=== PATIENT | male | born 1955 | race Caucasian/White ===

== ENCOUNTER 2017-02-06 16:18 | Emergency (ER) | payer MEDICAID ==
[~2017-02-06] VITALS: Ht 180.3 cm; Wt 90.0 kg
[~2017-02-06 16:18] MED LIST: AMOX1TAB64 PO; ASPI325T4 PO; ATEN50TA41 PO; ATOR40TA78 PO; ENAL10TA PO; FENO160T PO; HYDR2TAB29 PO; TRAM100T2 PO
[2017-02-06 16:21] VITALS: BP 191/76
[2017-02-06] MEDS ORDERED: HYDROmorphone 1 MG/ML, 1ML ONE (16:59)
[2017-02-06] MEDS ORDERED: HYDROmorphone 1 MG/ML, 1ML IM STA (16:59)
== END 2017-02-06 17:26 | disposition home or self-care (01) ==
LOC: ED 17:20
DX: S82.65XA Nondisplaced fracture of lateral malleolus of left fibula, initial encounter for closed fracture (principal); E78.00 Pure hypercholesterolemia, unspecified; I10 Essential (primary) hypertension; K21.9 Gastro-esophageal reflux disease without esophagitis; J44.9 Chronic obstructive pulmonary disease, unspecified; Z88.0 Allergy status to penicillin; Z88.5 Allergy status to narcotic agent; W23.0XXA Caught, crushed, jammed, or pinched between moving objects, initial encounter; Y93.55 Activity, bike riding; Y92.488 Other paved roadways as the place of occurrence of the external cause; Y99.8 Other external cause status
CPT/HCPCS: 29515; 73610; 73630; 96372; 99284; J1170

== ENCOUNTER 2018-03-12 15:10 | Emergency (ER) | payer MEDICAID ==
[~2018-03-12] VITALS: Ht 180.3 cm; Wt 91.0 kg
[~2018-03-12 15:10] MED LIST changes: +ASPI325T17 PO; -ASPI325T4 PO; -TRAM100T2 PO; +TRAM100T33 PO
[2018-03-12 15:12] VITALS: BP 155/74
[2018-03-12] MEDS ORDERED: LIDOCAINE-MPF 1%, 5ML INFIL ONE ×2 (15:30→16:00)
[2018-03-12] MEDS ORDERED: LIDOCAINE-MPF 2%, 2ML ONE (15:34)
[2018-03-12] MEDS ORDERED: DIPH,PERTUSS(ACELL),TET VAC/PF 0.5 ML IM-VACC ONE ×2 (15:51→16:00)
[2018-03-12] MEDS ORDERED: BACITRACIN ZINC OINT 500U/GM, 0.9 GM ONE (15:57)
== END 2018-03-12 16:14 | disposition home or self-care (01) ==
LOC: ED 16:00
DX: S61.412A Laceration without foreign body of left hand, initial encounter (principal); E78.00 Pure hypercholesterolemia, unspecified; I10 Essential (primary) hypertension; K21.9 Gastro-esophageal reflux disease without esophagitis; J44.9 Chronic obstructive pulmonary disease, unspecified; I25.2 Old myocardial infarction; F17.200 Nicotine dependence, unspecified, uncomplicated; Z86.73 Personal history of transient ischemic attack (TIA), and cerebral infarction without residual deficits; W45.8XXA Other foreign body or object entering through skin, initial encounter; Y93.89 Activity, other specified; Y92.009 Unspecified place in unspecified non-institutional (private) residence as the place of occurrence of the external cause; Y99.8 Other external cause status
CPT/HCPCS: 12002; 99283

== ENCOUNTER 2018-10-11 15:20 | Emergency (ER) | payer MEDICAID ==
[~2018-10-11] VITALS: Ht 180.3 cm; Wt 91.8 kg
[2018-10-11 15:23] VITALS: BP 152/81
--- NOTE | 2018-10-11 15:29 | NUR ---
Pt ambulates to room from triage with steady gait and balance. NADN. No obvious defecits observed.
[2018-10-11] MEDS ORDERED: LIDOCAINE 1%, 10ML INFIL ONE (15:30)
[2018-10-11] MEDS ORDERED: LIDOCAINE-MPF 1%, 2ML ONE (15:31)
--- NOTE | 2018-10-11 15:33 | NUR ---
TASK RN, FIRST CONTACT WITH PT. YU. Pt ambulatory with steady gait and balance to room from triage. Pt states, "My saw got hungry." Pt has open lacerations to left middle finger from electric saw. Pt states he is upto date on tetanus within last 5 years.
[2018-10-11] MEDS ORDERED: CEFAZOLIN 1,000 MG ONE (15:41)
--- NOTE | 2018-10-11 15:49 | NUR ---
PROVIDED REPORT TO YFN HANEY. YFN HANEY TO ASSUME CARE OF PT.
[2018-10-11] MEDS ORDERED: CEFAZOLIN 1,000 MG IM ONE (16:00)
[2018-10-11] MEDS ORDERED: BACITRACIN ZINC OINT 500U/GM, 0.9 GM ONE (16:44)
--- NOTE | 2018-10-11 16:51 | NUR ---
Patient/Caregiver given discharge instructions and they have confirmed that they understand the instructions. Patient ambulatory with steady gait.
--- NOTE | 2018-10-11 16:55 | NUR ---
Kendy ramos in [facility] - 10/11/18 at 1655 by SURJIT Patient/Caregiver given discharge instructions and they have confirmed that they understand the instructions. Patient ambulatory with steady gait.
== END 2018-10-11 16:56 | disposition home or self-care (01) ==
LOC: ED 16:50
DX: S62.663B Nondisplaced fracture of distal phalanx of left middle finger, initial encounter for open fracture (principal); S61.313A Laceration without foreign body of left middle finger with damage to nail, initial encounter; E78.00 Pure hypercholesterolemia, unspecified; I10 Essential (primary) hypertension; G89.29 Other chronic pain; K21.9 Gastro-esophageal reflux disease without esophagitis; J44.9 Chronic obstructive pulmonary disease, unspecified; I25.2 Old myocardial infarction; F17.200 Nicotine dependence, unspecified, uncomplicated; Z88.0 Allergy status to penicillin; Z88.5 Allergy status to narcotic agent; Z88.2 Allergy status to sulfonamides; X58.XXXA Exposure to other specified factors, initial encounter; Y93.89 Activity, other specified; Y92.009 Unspecified place in unspecified non-institutional (private) residence as the place of occurrence of the external cause; Y99.8 Other external cause status
CPT/HCPCS: 11730; 12041; 96372; 99284; J0690